=== PATIENT | male | born 1990 | race Caucasian/White ===

== ENCOUNTER 2024-12-08 11:08 | Emergency (ER) | payer BC, SELFPAY ==
[2024-12-08 11:21] VITALS: BP 110/85
[2024-12-08 11:43] LABS: % Basophils 0.4 % (0-2); % Immature Granulocytes 0.3 % (0-0.5); % Lymphocytes 25.3 % (20.5-51.1); % Monocytes 9.1 % (1.7-9.3); % Neutrophils 61.9 % (42.2-75.2); Absolute Eosinophils 0.2 10^3/uL (0-0.7); Absolute Lymphocytes 1.8 10^3/uL (1.2-3.4); Absolute Monocytes 0.6 10^3/uL (0.1-0.6); Absolute Neutrophils 4.3 10^3/uL (1.4-6.5); Hematocrit 42.8 % (39.0-52.0); Hemoglobin 14.9 g/dL (13.0-18.0); Mean Corp Hgb Conc. 34.8 g/dL (33.0-37.0); Mean Corpuscular Hgb 31.6 pg (27.0-31.0); Mean Corpuscular Volume 90.9 fL (80.0-94.0); Mean Platelet Volume 9.5 fL (7.4-10.4); Nucleated Red Blood Cells % 0 % (-); Platelet Count 275 10^3/uL (130-400); Red Blood Cell Count 4.71 10^6/uL (4.70-6.10); Red Cell Dist. Width 12.1 % (11.5-14.5)
[2024-12-08 12:01] LABS: Urine Albumin Trace (Neg - Trace); Urine Bilirubin Negative (Negative); Urine Character Clear (Clear); Urine Color Yellow; Urine Glucose Negative (Negative); Urine Ketone Negative (Negative); Urine Leukocyte Negative (Negative); Urine Nitrite Negative (Negative); Urine Occult Blood 4+ (Negative); Urine Urobilinogen Negative (Neg - 1+)
[2024-12-08 12:03] LABS: ALT (SGPT) 25 U/L (0-50); AST (SGOT) 22 U/L (17-59); Albumin 4.6 g/dl (3.5-5.0); Alkaline Phosphatase 43 U/L (38-126); Blood Urea Nitrogen 15 mg/dl (9-20); Calcium 9.6 mg/dl (8.4-10.2); Carbon Dioxide 27 mmol/L (22-30); Chloride 103 mmol/L (98-107); Glucose 90 mg/dl (70-99); Potassium 4.4 mmol/L (3.5-5.1); Sodium 138 mmol/L (135-145); Total Bilirubin 0.7 mg/dl (0.2-1.3); eGFR > 60.00
[2024-12-08 12:55] LABS: Urine Red Blood Cell 50-60 /HPF (0-2); Urine White Cell 0-2 /HPF (0-5)
[2024-12-08 14:00] VITALS: BP 125/73
--- NOTE | 2024-12-08 14:52 | ED.GENMED ---
History of Present Illness
General
Chief Complaint: Urinary Symptoms
Source: patient
Exam Limitations: none
Time Seen by Provider: 12/08/24 12:18
History of Present Illness
History of Present Illness:
34-year-old male presents complaining of grossly bloody urine starting this morning. He also noted left lower abdominal pain that is been coming and going since this morning. No injuries. No fever. No urinary symptoms otherwise. He is healthy
Phy Exam
Physical Exam
Physical Exam:
General: Well-appearing male no acute respiratory distress
HEENT: Normocephalic atraumatic
Heart: Regular rate and rhythm no murmurs
Lungs: Clear no wheeze
Abdomen is soft mild left lower quadrant abdominal tenderness
Extremities: No cyanosis
Course
Orders/Labs/Results
Orders:
Orders
12/08/24 11:27
CBC/With Diff [Complete Blood Count/With Diff] Urgent
Comprehensive Metabolic Panel Urgent
12/08/24 11:51
Urinalysis Reflex To Culture Urgent
Date Specimen was Collected: 12/08/24
Time Specimen was Collected: 11:24
Urine Microscopic Reflex Cult Urgent
12/08/24 12:39
CT Abd/pel Without Iv Or Oral Urgent
Comment:
Reason For Exam: hemauria, llq pain
Abnormal Lab Results
12/08/24 12/08/24
11:27 11:51
MCH 31.6 H pg
(27.0-31.0)
Ur Occult Blood Reflex 4+ A
(Negative)
Urine RBC 50-60 A /HPF
(0-2)
12/08/24 11:27
12/08/24 11:27
Vital Signs
Initial and Last Documented VS:
Initial Vital Signs
Temp Pulse Resp BP Pulse Ox
98.3 F 70 16 110/85 98
12/08/24 11:21 12/08/24 11:21 12/08/24 11:21 12/08/24 11:21 12/08/24 11:21
Last Documented Vital Signs
Temp Pulse Resp BP Pulse Ox
98.3 F 72 18 125/73 98
12/08/24 11:21 12/08/24 14:00 12/08/24 14:00 12/08/24 14:00 12/08/24 11:21
MDM/Problems Addressed
Differential Diagnosis Includes:
Lower abdominal pain with hematuria. Consider renal colic versus UTI versus diverticulitis
Urinalysis with hematuria. CT performed demonstrates a 5 mm stone in the left renal pelvis that is nonobstructing. UA without signs of infection
Patient looks nontoxic. Suspect this may be the source of his discomfort and hematuria. Recommended Motrin
*Critical Care Note
Total Time (30-74mins, 75-104mins- exclusive of procedures): Not Applicable
ED Attending Note
-
Portions of this chart may have been created with voice recognition software.� Occasional wrong word or��sound alike� substitutions may have occurred due to the inherent limitations of voice recognition software.
Discharge Plan
Departure
Patient Disposition: Home (Routine Discharge)
Date of Disposition: 12/08/24
Time of Disposition: 14:54
Patient with high blood pressure during this ER visit?: No
Discharge Problem:
Kidney stone
Instructions: Kidney stones in adults
Referrals:
Kevin Salas MD [Family Provider] -
Kyle Ledesma MD [Active] -
Activity Restrictions/Additional Instructions:
Drink plenty of fluids. Return here for worsening symptoms. You may use ibuprofen for pain. Follow-up with urologist otherwise
Interventions
Interventions:
*Risk Screen - Suicide Last Done: 12/08/24 11:21
*General Assessment Last Done: 12/08/24 11:21
*Neglect/Abuse Screening Last Done: 12/08/24 11:21
*ED COVID-19 Vaccine History Last Done: 12/08/24 13:19
ED-Male Genitourinary Assessment Last Done: 12/08/24 12:21
Discharge Date and Time
Print Language: TOGOLESE
== END 2024-12-08 15:05 | disposition home or self-care (01) ==
LOC: EMR 11:08
PROVIDERS: EMERGENCY PHYSICIAN Emergency Medicine; FAMILY PHYSICIAN Family Medicine
DX: N20.0 Calculus of kidney (principal)
CPT/HCPCS: 99284; 74176; 80053; 81003; 81015; 85025